=== PATIENT | female | born 1990 | race Two or more races ===

== ENCOUNTER 2024-06-12 09:21 | Emergency (ER) | payer MEDICAID, SELFPAY ==
[2024-06-12 09:38] VITALS: BP 141/94; PULSE 98; RESP 17; TEMP 36.9; O2SAT 100
--- NOTE | 2024-06-12 09:42 | EDNOTE_ITS ---
ED Medical Clearance RME/HPI General Stated complaint: MEDICAL CLEARANCE Time Seen by Provider: 06/12/24 09:24 Arrival date/time: 06/12/24 09:21 RME / HPI RME / HPI Narrative: This section includes all my notes and documentations, including HPI, PE, and ED course.? Issac Conner MD HPI: 34 year old female with no stated medical history presents to the ED BIB law enforcement for medical clearance for incarceration today. Per officers, patient is under the influence of alcohol and breathalyzer today showed alcohol level of 0.147. While in the ED patient has no complaints and would not have come otherwise. Requests to be medically cleared. ROS: All negative except as documented in HPI. Physical Exam: General:? Alert and oriented.?? Eyes:? Conjunctivae and lids clear.?? ENT:? No nasal congestion.?? Neck:? Supple.?? Heart: RRR. Lungs:? No respiratory distress.??Good air movement with no rhonchi or wheezing or rales. Skin:? Warm and dry.?? Neuro:? Alert and oriented X 3.?? Based on my best medical judgment, made decision to medically cleared the patient and no further evaluation or treatment indicated at this time.? Patient understands and agrees to the discharge instructions customized and printed, see below. Issac Conner MD Related Information Previous Rx's ?Medication ?Instructions ?Recorded oxycodone-acetaminophen 5 mg-325 1 tab PO BID #10 tabs 06/06/22 mg tablet (Percocet) Allergies Allergy/AdvReac Type Severity Reaction Status Date / Time No Known Allergies Allergy Verified 03/02/21 09:20 Review of Systems Review of Systems Systems Reviewed: All systems reviewed, normal except as documented Past Medical History Past Medical History CARDIAC: Negative Congestive Heart Failure RESPIRATORY: Negative Chronic Obstructive Pulmonary Disease (COPD) GENITOURINARY: Negative Renal Disease ENDOCRINE: Negative Diabetes Mellitus Type 1 or Diabetes Mellitus Type 2 OTHER HISTORY: Positive Blood Transfusions; Negative Autoimmune Disease, Organ Transplant, MRSA, Clostridium Difficile or Cancer Family History FAMILY HISTORY: Negative Family Cardiac Disorders Surgical History SURGICAL: Negative Endocrine Surgery, Ear Surgery, Abdominal Surgery, Nephrectomy, Joint Replacement, Neurologic Surgery, Mastectomy, Vasectomy or Organ Transplant Social History SMOKING STATUS: Never smoker SECOND HAND EXPOSURE: No ED Exam Narrative Physical exam: As noted in HPI Course Quality Measures none Vital Signs Vital signs: Vital Signs Temperature 98.5 F 06/12/24 09:38 Pulse Rate 98 06/12/24 09:38 Respiratory Rate 17 06/12/24 09:38 Blood Pressure 141/94 H 06/12/24 09:38 Pulse Oximetry (%) 100 06/12/24 09:38 Oxygen Delivery Method Room Air 06/12/24 09:38 Pulse ox is 100% on room air which is adequate. Medical Clearance MDM Narrative MDM Narrative:: Dania Black am scribing for and in the presence of Dr. Conner. Patient data External records reviewed:: [facility] previous records (I reviewed ED visit on 06/06/2021) Clinical information provided by:: patient and law enforcement Social determinants that could affect healthcare access:: alcohol use Patient has the following chronic illnesses:: None How is presenting disease/condition affected by chronic disease/condition?: no chronic disease Evaluation data The following diagnostics were reviewed and interpreted by me:: other (specify) (N/A ) Lab and/or radiology exams considered but not ordered:: None Interpretation Summary: N/A Medications / Prescriptions Medications or Prescriptions considered but not ordered:: None Medication administrations:: None Consultations Consultation(s) initiated? (list below): No Diagnosis Medical Clearance Differential Diagnosis: other (Alcohol intoxication, medical screening exam, medical clearance for incarceration ) Most likely diagnosis given after review of the tests above:: Medical clearance for incarceration Admission Indicated Admission indicated?: not indicated Admission Request Was there a request for admission?: No Disposition Plan Disposition Plan: Discharge Discharge Attestation Discharge Attestation: The patient and all family members were given an opportunity to ask questions and understood the discharge instructions. Discharge instructions specifically effects, indications for sooner follow up or return to the emergency department, and the expected course of current diagnosis. Patient condition: Stable Discharge Plan Plan Patient Disposition: Skilled Nursing/Court/Law Prescriptions/Referrals Prescriptions/Med Rec: No Action oxycodone-acetaminophen [Percocet] 5-325 mg tablet 1 tab PO BID MDD 2 Qty: 10 0RF Referrals: No Primary/Family,Physician [Primary Care Provider] - In 1 week Problem List Clinical Impression: Medical clearance for incarceration Patient/Caregiver Discharge Instructions Education Materials: ED Alcohol Intoxication Additional Instructions: Discharge instructions from Dr. Conner: 1. As you requested, you are medically cleared for incarceration. As you reported no complaints or concerns. 2. Seek immediate medical care with any concerns. Print Language: Slovenian
[2024-06-12 10:08] VITALS: BMI 27.4
== END 2024-06-12 10:14 ==
PROVIDERS: Emergency Provider Emergency Medicine
DX: Z02.89 Encounter for other administrative examinations (principal); F10.129 Alcohol abuse with intoxication, unspecified; Y90.6 Blood alcohol level of 120-199 mg/100 ml
CPT/HCPCS: 99281